=== PATIENT | male | born 1995 | race Caucasian/White ===

== ENCOUNTER 2017-10-27 06:58 | Emergency (ER) | payer OTHER ==
[~2017-10-27] VITALS: Ht 182.9 cm; Wt 73.8 kg
[2017-10-27] MEDS ORDERED: MOTRIN600 MG PO (08:20)
[2017-10-27 08:36] VITALS: BP 127/87
== END 2017-10-27 08:36 | disposition home or self-care (01) ==
LOC: EME 06:58
DX: J02.9 Acute pharyngitis, unspecified (principal); H92.02 Otalgia, left ear
CPT/HCPCS: 99281; 99284